=== PATIENT | female | born 1960 | race Caucasian/White ===

== ENCOUNTER → 2017-06-15 | Outpatient (CLI) | payer BC, OTHER | LOC: M LAB 08:00 | PROVIDERS: ATTEND Family Medicine | DX: D64.9 Anemia, unspecified (principal); R53.83 Other fatigue; E03.9 Hypothyroidism, unspecified ==

== ENCOUNTER → 2017-06-15 | Outpatient (CLI) | payer BC, OTHER ==
--- NOTE | 2017-06-15 08:38 | REPMRS ---
Patient History The patient states she has not had a clinical breast exam in over a year. Patient is postmenopausal. Family history of breast cancer in mother at age 65. Digital Mammo Screening Bilat: June 15, 2017 - Exam #: [id number] Bilateral CC and MLO view(s) were taken. Technologist: Belkis Dey, Technologist Prior study comparison: March 26, 2011, bilateral digital mammo screening bilat performed at [facility]. FINDINGS: There are scattered fibroglandular densities. The patient states that there are no palpable abnormalities or other breast complaints. There has been no change in the appearance of the mammogram from the prior studies. There is a mild amount of residual fibroglandular tissue which is fairly symmetric. There is no interval development of dominant mass, architectural distortion, or clustered microcalcification suggestive of malignancy. ASSESSMENT: BI-RADS/ACR category 1 mammogram. Negative. Recommendation Routine screening mammogram in 1 year (for women over age 40). This mammogram was interpreted with the aid of an FDA-approved computer-aided dectection system. A. Negative x-ray reports should not delay biopsy if a dominant or clinically suspicious mass is present. B. Not all cancers are identified by mammography. C. Adenosis and dense breast may obscure an underlying neoplasm. Electronically Signed By: Kwesi Robison M.D. 06/15/17 0837
[2017-06-15 09:50] LABS: MEAN CORPUSCULAR HEMOGLOBIN 28.7 pg (27.0-33.0); MEAN CORPUSCULAR HGB CONC 32.8 g/dl (32.0-36.5); MEAN CORPUSCULAR VOLUME 87.6 fl (80.0-96.0); RED CELL DISTRIBUTION WIDTH 12.9 % (11.5-14.5); WHITE BLOOD COUNT 4.8 K/mm3 (4.0-10.0)
[2017-06-15 10:26] LABS: ALBUMIN 3.7 GM/DL (3.2-5.2); ALBUMIN/GLOBULIN RATIO 1.12 (1.00-1.93); ALKALINE PHOSPHATASE 89 U/L (45-117); ALT/SGPT 34 U/L (12-78); ANION GAP 8 MEQ/L (8-16); AST/SGOT 18 U/L (15-37); BILIRUBIN,TOTAL 0.4 MG/DL (0.2-1.0); BLOOD UREA NITROGEN 13 MG/DL (7-18); CALCIUM LEVEL 8.6 MG/DL (8.5-10.1); CARBON DIOXIDE LEVEL 27 MEQ/L (21-32); CHLORIDE LEVEL 102 MEQ/L (98-107); CHOLESTEROL LEVEL 243 MG/DL (<200); GLOMERULAR FILTRATION RATE > 60.0 (>51); GLUCOSE, FASTING 86 MG/DL (70-105); POTASSIUM SERUM 3.9 MEQ/L (3.5-5.1); SODIUM LEVEL 137 MEQ/L (136-145); TRIGLYCERIDES LEVEL 113 MG/DL (<150)
== END ==
LOC: M RAD 07:39
PROVIDERS: ATTEND Family Medicine
DX: Z12.31 Encounter for screening mammogram for malignant neoplasm of breast (principal); Z78.0 Asymptomatic menopausal state
CPT/HCPCS: 36415; 80053; 80061; 82306; 83036; 84443; 85027; G0202

== ENCOUNTER → 2017-07-01 | Outpatient (CLI) | payer BC, OTHER ==
[~2017-07-01] MED LIST: E-Z-GAS II EFFERVESCENT PACKET (SODIUM BICARB./CITRIC ACID/SIMETHICONE) As Ordered ONE; E-Z-HD 98% w/w 340GM SUSP BTL As Ordered ONE; E-Z-PAQUE 96% w/w SUSP 176GM BTL As Ordered ONE
--- NOTE | 2017-07-01 18:57 | REP ---
UPPER GI AIR CONTRAST: The procedure was performed under the direct supervision of Dr. Rodríguez. The images were reviewed with Dr. Guo. The market president film shows no organomegaly or pathological masses. The intestinal gas pattern is nonspecific. There are surgical clips noted in the right upper quadrant. Liquid barium and gas producing granules were given in the erect position as well as liquid barium in the prone oblique position in order to perform a double contrast upper GI examination. The oral and pharyngeal stages of deglutition are unremarkable. Esophageal transport demonstrates tertiary waves. There is no esophagitis, stricture, or mucosal ring. There is a sliding type hiatal hernia present. Gastroesophageal reflux is not demonstrated on this examination. The stomach mercado are normally outlined. The rugal folds are smooth and regular. There is no gastritis, neoplasm or ulcer disease. The duodenal mercado are normally outlined. The mucosal folds are smooth and regular. There is no duodenitis, pancreatitis, peptic ulcer disease, or neoplasm. The visualized portion of the proximal small bowel appears normal in course and caliber. IMPRESSION: 1. Esophageal dysmotility. 2. There is a sliding type hiatal hernia present. 2 minutes and 16 seconds of fluoroscopy time was utilized for this procedure. Reviewed by JAMAL Faulkner 07/02/2017 05:08 PEdited and Signed by Kwesi Rodríguez MD 07/02/2017 05:21 P
== END ==
LOC: M RAD 08:42
PROVIDERS: ATTEND Family Medicine
DX: K22.8 Other specified diseases of esophagus (principal); K44.9 Diaphragmatic hernia without obstruction or gangrene; K27.9 Peptic ulcer, site unspecified, unspecified as acute or chronic, without hemorrhage or perforation; R13.10 Dysphagia, unspecified

== ENCOUNTER 2017-10-20 07:40 | Day surgery (SDC) | payer BC, OTHER ==
[~2017-10-20] VITALS: Ht 165.1 cm; Wt 85.2 kg
[~2017-10-20 07:40] MED LIST changes: -E-Z-GAS II EFFERVESCENT PACKET (SODIUM BICARB./CITRIC ACID/SIMETHICONE) As Ordered ONE; -E-Z-HD 98% w/w 340GM SUSP BTL As Ordered ONE; -E-Z-PAQUE 96% w/w SUSP 176GM BTL As Ordered ONE; +ESTR1TAB PO; +LEVO125T4 PO; +MELA1TAB15 PO; +PRIL20CA9 PO; +SERT-138 PO; +SERT-155 PO; +URO-1CAP PO; +VITA400T2 PO
[2017-10-20] MEDS ORDERED: NS 1,000 ML IV ONE (08:15)
--- NOTE | 2017-10-20 09:23 | ROOR ---
Patient Name: Shalini Becerril Procedure Date: 10/20/2017 8:58 AM Date of : 1960 Age: 57 Room: [facility] Gender: Female Note Status: Finalized Procedure: Total Colonoscopy to Cecum Indications: Screening for colorectal malignant neoplasm Providers: Rodrick Chanel MD Referring MD: NIVIA MAX MD Requesting Provider: Medicines: Monitored Anesthesia Care Complications: No immediate complications. Procedure: Pre-Anesthesia Assessment: - The heart rate, respiratory rate, oxygen saturations, blood pressure, adequacy of pulmonary ventilation, and response to care were monitored throughout the procedure. The Colonoscope was introduced through the anus and advanced to the cecum, identified by appendiceal orifice and ileocecal valve. The colonoscopy was performed without difficulty. The patient tolerated the procedure well. The quality of the bowel preparation was good. Findings: The perianal and digital rectal examinations were normal. Non-bleeding internal hemorrhoids were found during retroflexion. The hemorrhoids were small and Grade I (internal hemorrhoids that do not prolapse). A diffuse area of mild melanosis was found in the entire colon. Scattered small-mouthed diverticula were found in the recto-sigmoid colon, sigmoid colon and descending colon. The exam was otherwise without abnormality on direct and retroflexion views. The exam was otherwise without abnormality. Impression: - Non-bleeding internal hemorrhoids. - Melanosis in the colon. - Diverticulosis in the recto-sigmoid colon, in the sigmoid colon and in the descending colon. - The examination was otherwise normal on direct and retroflexion views. - The examination was otherwise normal. - No specimens collected. - The exam was otherwise normal to the cecum. Recommendation: - Patient has a contact number available for emergencies. The signs and symptoms of potential delayed complications were discussed with the patient. Return to normal activities tomorrow. Written discharge instructions were provided to the patient. - High fiber diet. - Discharge patient to home. - Continue present medications. - Repeat colonoscopy in 10 years for screening purposes. - Return to referring physician. - The findings and recommendations were discussed with the patient's family. Rodrick Chanel MD Rodrick Chanel MD 10/20/2017 9:23:49 AM This report has been signed electronically. Number of Addenda: 0 Note Initiated On: 10/20/2017 8:58 AM Estimated Blood Loss: Estimated blood loss: none.
[2017-10-20] MEDS ORDERED: LIDOCAINE 2% INJ 100 MG/5 ML SDV (FOR ANES.) As Ordered ONE (09:24)
[2017-10-20] MEDS ORDERED: PROPOFOL 200 MG/20 ML VIAL As Ordered ONE (09:25)
[2017-10-20 09:50] VITALS: BP 141/71
== END 2017-10-20 10:10 | disposition home or self-care (01) ==
LOC: M OPP 07:40
PROVIDERS: ATTEND Internal Medicine Gastroenterology
DX: Z12.11 Encounter for screening for malignant neoplasm of colon (principal); K57.30 Diverticulosis of large intestine without perforation or abscess without bleeding; K64.0 First degree hemorrhoids; L81.4 Other melanin hyperpigmentation; E03.9 Hypothyroidism, unspecified; K44.9 Diaphragmatic hernia without obstruction or gangrene; R12 Heartburn; K21.9 Gastro-esophageal reflux disease without esophagitis; M19.90 Unspecified osteoarthritis, unspecified site; F41.9 Anxiety disorder, unspecified; F32.9 Major depressive disorder, single episode, unspecified; R39.89 Other symptoms and signs involving the genitourinary system; Z88.1 Allergy status to other antibiotic agents; Z88.2 Allergy status to sulfonamides; Z79.899 Other long term (current) drug therapy; Z80.3 Family history of malignant neoplasm of breast

== ENCOUNTER → 2018-06-16 | Outpatient (CLI) | payer BC, OTHER | LOC: M RAD 07:00 | DX: Z12.31 Encounter for screening mammogram for malignant neoplasm of breast (principal) | CPT/HCPCS: 77067 ==

== ENCOUNTER → 2019-06-20 | Outpatient (CLI) | payer BC, OTHER ==
--- NOTE | 2019-06-20 08:31 | REP ---
BILATERAL SCREENING DIGITAL MAMMOGRAM WITH 3D TOMOSYNTHESIS: There are no palpable abnormalities or other breast complaints. The the patient states she is not had a clinical breast examination in over a year. The Tyrer-Cuzick Score is: 15.3% . Comparison is 05/07/2014. There are scattered areas of fibroglandular density. There is no dominant mass, micro calcific cluster or architectural distortion that would indicate malignancy. There are no additional findings on 3D tomosynthesiss. There is no change from the prior study. Impression: BIRADS/ACR category 1 mammogram. Negative. Recommendation: Routine annual screening mammography. This mammogram was interpreted with the aid of a FDA approved computer-aided detection system. A. Negative mammogram reports should not delay biopsy if a dominant or clinically suspicious mass is present. B. Not all breast cancers are identified by mammography or tomosynthesis. C. Adenosis and dense breasts may obscure an underlying neoplasm. Patient letter M1. Electronically Signed by Kwesi Robison MD 06/20/2019 08:22 A
== END ==
LOC: M RAD 07:03
PROVIDERS: ATTEND Family Medicine
DX: Z12.31 Encounter for screening mammogram for malignant neoplasm of breast (principal)

== ENCOUNTER → 2019-08-29 | Outpatient (CLI) | payer BC, OTHER ==
--- NOTE | 2019-08-29 15:22 | REP ---
THYROID ULTRASOUND: Real-time sonographic evaluation of the thyroid performed. COMPARISON: 05/22/2016. Right lobe is larger than the left. Right lobe measures 4.6 x 1.3 x 0.9 cm and left lobe 3.7 x 1.2 x 1.0 cm. Echotexture is diffusely heterogeneous. In the mid right lobe is a solid appearing hypoechoic nodule 9 x 5 x 4 mm. Just superior to that another hypoechoic nodule measures 6 x 5 x 3 mm. In the left lobe mid aspect a complex septated cyst measures 5 x 3 x 3 mm. IMPRESSION: Two solid appearing nodules in the right lobe of the thyroid. Recommend followup ultrasound in 6 months. Electronically Signed by Kwesi Rodríguez MD 08/30/2019 04:16 P
== END ==
LOC: M RAD 13:45
PROVIDERS: ATTEND Family Medicine
DX: E04.2 Nontoxic multinodular goiter (principal)

== ENCOUNTER → 2019-09-13 | Outpatient (REF) | payer OTHER ==
[~2019-09-13] MED LIST changes: -SERT-155 PO; +SERT50TA29 PO
[2019-09-13 16:12] LABS: FREE T4 1.27 NG/DL (0.76-1.46); THYROID STIMULATING HORMONE 0.324 uIU/ML (0.358-3.740)
== END ==
LOC: M LABDRAW1 13:25
PROVIDERS: ATTEND Nurse Practitioner Family
DX: E03.9 Hypothyroidism, unspecified (principal)

== ENCOUNTER → 2020-03-18 | Outpatient (REF) | payer OTHER ==
[2020-03-18 18:10] LABS: FREE T4 1.28 NG/DL (0.76-1.46); THYROID STIMULATING HORMONE 0.574 uIU/ML (0.358-3.740)
== END ==
LOC: M LABDRWAD 16:31
PROVIDERS: ATTEND Nurse Practitioner Family
DX: E03.9 Hypothyroidism, unspecified (principal)

== ENCOUNTER 2020-06-30 13:04 | Emergency (ER) | payer BC, OTHER ==
[2020-06-30] MEDS ORDERED: MORPHINE 4 MG/ML 1ML VIAL/SYRINGE (J2270) ONE (13:34)
== END 2020-06-30 15:23 | disposition home or self-care (01) ==
LOC: M ED 13:04
DX: M51.37 Other intervertebral disc degeneration, lumbosacral region (principal); G89.29 Other chronic pain; M54.5 Low back pain; F33.9 Major depressive disorder, recurrent, unspecified; F41.9 Anxiety disorder, unspecified; Z88.2 Allergy status to sulfonamides; Z88.1 Allergy status to other antibiotic agents; Z79.899 Other long term (current) drug therapy
CPT/HCPCS: 72110; 96372; 99283; J2270

== ENCOUNTER → 2020-07-30 | Outpatient (CLI) | payer BC, OTHER ==
[2020-07-30 10:43] LABS: HEMATOCRIT 38.6 % (36.0-47.0); HEMOGLOBIN 12.1 g/dl (12.0-15.5); MEAN CORPUSCULAR HEMOGLOBIN 27.9 pg (27.0-33.0); MEAN CORPUSCULAR HGB CONC 31.3 g/dl (32.0-36.5); MEAN CORPUSCULAR VOLUME 88.9 fl (80.0-96.0); PLATELET COUNT, AUTOMATED 285 10^3/uL (150-450); RED BLOOD COUNT 4.34 10^6/uL (4.00-5.40)
[2020-07-30 11:08] LABS: HEMOGLOBIN A1c 5.9 %
[2020-07-30 11:12] LABS: ALBUMIN 3.5 GM/DL (3.2-5.2); ALT/SGPT 27 U/L (12-78); BILIRUBIN,TOTAL 0.3 MG/DL (0.2-1.0); BLOOD UREA NITROGEN 12 MG/DL (7-18); CALCIUM LEVEL 9.2 MG/DL (8.5-10.1); CARBON DIOXIDE LEVEL 28 MEQ/L (21-32); CHLORIDE LEVEL 107 MEQ/L (98-107); CHOLESTEROL LEVEL 275 MG/DL (<200); CHOLESTEROL RISK RATIO 4.104 (<5); CREATININE FOR GFR 0.81 MG/DL (0.55-1.30); GLOMERULAR FILTRATION RATE > 60.0 (>51); GLUCOSE, FASTING 86 MG/DL (70-100); HDL CHOLESTEROL 67 MG/DL (>40); IRON (FE) 58 UG/DL (50-170); LDL CHOLESTEROL 187 MG/DL (<100); NON-HDL-C 208 MG/DL; PERCENT SATURATION 14.7 % (13.2-45.0); POTASSIUM SERUM 4.3 MEQ/L (3.5-5.1); SODIUM LEVEL 140 MEQ/L (136-145); THYROID STIMULATING HORMONE 0.158 uIU/ML (0.358-3.740); TOTAL 25(OH) VITAMIN D 79.7 NG/ML (30.0-100.0); TOTAL IRON BINDING CAPACITY 395 UG/DL (250-450); TRIGLYCERIDES LEVEL 103 MG/DL (<150)
[2020-07-30 11:58] LABS: VITAMIN B12 LEVEL 440 PG/ML (247-911)
== END ==
LOC: M LAB 09:37
PROVIDERS: ATTEND Family Medicine
DX: R53.83 Other fatigue (principal); I10 Essential (primary) hypertension; E03.9 Hypothyroidism, unspecified

== ENCOUNTER → 2020-08-02 | Outpatient (CLI) | payer BC, OTHER ==
--- NOTE | 2020-08-02 11:42 | REPVR ---
PROCEDURE INFORMATION: Exam: MR Lumbar Spine Without Contrast. Exam date and time: 08/02/2020 11:14 AM Age: 60 years old Clinical indication: Low back pain; Additional info: Other intervertebral disc degeneration TECHNIQUE: Imaging protocol: Multiplanar magnetic resonance images of the lumbar spine without intravenous contrast. COMPARISON: No relevant prior studies available. FINDINGS: Vertebrae: There is no fracture or listhesis. Normal vertebral body alignment and heights are preserved. There is severe intervertebral disc space loss at L5/S1, with endplate changes. Spinal cord: The conus medullaris terminates at L1. L1-L2: There is shallow disc bulging. There is mild facet hypertrophy. The spinal canal and neural foramina are patent. L2-L3: There is shallow disc bulging. There is moderate facet and ligamentous hypertrophy. The spinal canal and neural foramina are patent. L3-L4: There is shallow disc bulging. There is moderate facet hypertrophy. There is mild bilateral neural foraminal narrowing. L4-L5: There is diffuse disc bulging with a right paracentral component. This indents the thecal sac and narrows the right lateral recess. There is mild canal stenosis, with a residual canal diameter of 10mm. There is moderate facet hypertrophy. There is mild bilateral neural foraminal narrowing. L5-S1: There is a shallow disc osteophyte complex. There is mild facet hypertrophy. There is mild to moderate right neural foraminal narrowing. Soft tissues: Unremarkable. IMPRESSION: Degenerative disc disease and spondylosis as described. Electronically signed by: Noreen Gillette On 08/02/2020 11:41:33 AM
== END ==
LOC: M RAD 10:29
PROVIDERS: ATTEND Physician Assistant
DX: M47.816 Spondylosis without myelopathy or radiculopathy, lumbar region (principal); M25.78 Osteophyte, vertebrae; M51.36 Other intervertebral disc degeneration, lumbar region

== ENCOUNTER → 2020-08-06 | Outpatient (CLI) | payer BC ==
--- NOTE | 2020-08-06 12:31 | REPMRS ---
Patient History The patient states she has not had a clinical breast exam in over a year. Patient is postmenopausal. Family history of breast cancer at age 65 in mother. Digital Woman Screen Mammo: August 06, 2020 - Exam #: [id number] Bilateral CC and MLO view(s) were taken. Technologist: RT Angelia Prior study comparison: June 20, 2019, bilateral digital mammo screening bilat, performed at [facility]. June 16, 2018, bilateral digital mammo screening bilat, performed at [facility]. June 15, 2017, bilateral digital mammo screening bilat, performed at [facility]. FINDINGS: The breast tissue is almost entirely fat. The Volpara volumetric breast density category is: A. There has been no change in the appearance of the mammogram from the prior studies. There is no interval development of dominant mass, architectural distortion, or grouped microcalcification typical of malignancy. 3-D tomosynthesis shows no additional findings. Assessment: BI-RADS/ACR category 1 mammogram. Negative Mammogram. Recommendation Routine screening mammogram of both breasts in 1 year (for women over age 40). This patient's Lifetime Breast Cancer RIsk is estimated at 18.4 %. This mammogram was interpreted with the aid of an FDA-approved computer-aided dectection system. Electronically Signed By: Ryan Guo MD 08/06/20 [id number]
== END ==
LOC: M WHC 08:17
PROVIDERS: ATTEND Family Medicine
DX: Z12.31 Encounter for screening mammogram for malignant neoplasm of breast (principal); Z78.0 Asymptomatic menopausal state; Z80.3 Family history of malignant neoplasm of breast

== ENCOUNTER → 2020-09-16 | Outpatient (REF) | payer OTHER ==
[2020-09-16 19:11] LABS: FREE T4 1.43 NG/DL (0.76-1.46); THYROID STIMULATING HORMONE 0.11 uIU/ML (0.358-3.740)
== END ==
LOC: M LABDRWAD 17:51 → M LAB REF 17:51
PROVIDERS: ATTEND Nurse Practitioner Family
DX: E03.9 Hypothyroidism, unspecified (principal)

== ENCOUNTER → 2020-11-18 | Outpatient (REF) | payer OTHER | LOC: M LABDRWAD 12:26 | PROVIDERS: ATTEND Internal Medicine Endocrinology, Diabetes & Metabolism | DX: E03.9 Hypothyroidism, unspecified (principal) ==

== ENCOUNTER → 2020-12-26 | Outpatient (REF) | payer OTHER | LOC: M LABDRWAD 16:05 | PROVIDERS: ATTEND Family Medicine | DX: Z79.899 Other long term (current) drug therapy (principal) ==

== ENCOUNTER → 2021-03-19 | Outpatient (REF) | payer OTHER ==
[2021-03-19 17:33] LABS: FREE T4 1.1 NG/DL (0.76-1.46); THYROID STIMULATING HORMONE 0.809 uIU/ML (0.358-3.740)
== END ==
LOC: M LABDRWAD 16:15
PROVIDERS: ATTEND Nurse Practitioner Family
DX: E03.9 Hypothyroidism, unspecified (principal)

== ENCOUNTER 2021-05-24 12:56 | Emergency (ER) | payer BC, OTHER ==
[~2021-05-24] VITALS: Ht 165.1 cm; Wt 73.7 kg
[2021-05-24] MEDS ORDERED: ESTR625TA (13:15)
[2021-05-24] MEDS ORDERED: ALPR0.5T3 (13:15)
[2021-05-24] MEDS ORDERED: AMIT25TA17 (13:15)
[2021-05-24] MEDS ORDERED: SIMV20TA22 PO (13:15)
[2021-05-24] MEDS ORDERED: BOOSTRIX/ADACEL VACCINE (DIPHTH/PERTUSS/ACELL/TETANUS) 0.5ML SYR IM ONE (14:35)
[2021-05-24] MEDS ORDERED: predniSONE 20 MG TAB PO ONE (14:35)
[2021-05-24] MEDS ORDERED: CEPH500T PO (14:35)
[2021-05-24 14:44] VITALS: BP 149/84
== END 2021-05-24 14:51 | disposition home or self-care (01) ==
LOC: M ED 12:56
DX: T63.441A Toxic effect of venom of bees, accidental (unintentional), initial encounter (principal); S60.445A External constriction of left ring finger, initial encounter; R22.32 Localized swelling, mass and lump, left upper limb; L03.012 Cellulitis of left finger; Z91.030 Bee allergy status; Y92.009 Unspecified place in unspecified non-institutional (private) residence as the place of occurrence of the external cause; Y93.9 Activity, unspecified; Y99.9 Unspecified external cause status; E03.9 Hypothyroidism, unspecified; F41.9 Anxiety disorder, unspecified; F32.9 Major depressive disorder, single episode, unspecified; E78.5 Hyperlipidemia, unspecified; Z79.899 Other long term (current) drug therapy; Z88.2 Allergy status to sulfonamides; Z88.8 Allergy status to other drugs, medicaments and biological substances
CPT/HCPCS: 90715; 96372; 99283; J7512

== ENCOUNTER → 2021-09-15 | Outpatient (REF) | payer BC, OTHER ==
[~2021-09-15] MED LIST changes: +ALPR0.5T3; +AMIT25TA17; +CEPH500T PO; +ESTR625TA; +SIMV20TA22 PO
[2021-09-16 15:12] LABS: FREE T4 1.29 NG/DL (0.76-1.46); THYROID STIMULATING HORMONE 0.49 uIU/ML (0.358-3.740)
== END ==
LOC: M LABDRWAD 12:39
PROVIDERS: ATTEND Nurse Practitioner Family
DX: E03.9 Hypothyroidism, unspecified (principal)

== ENCOUNTER → 2022-02-23 | Outpatient (CLI) | payer BC, OTHER | LOC: M PLAIMG 09:25 | PROVIDERS: ATTEND Internal Medicine | DX: G57.81 Other specified mononeuropathies of right lower limb (principal); M22.41 Chondromalacia patellae, right knee; M25.461 Effusion, right knee ==

== ENCOUNTER → 2023-03-17 | Outpatient (REF) | payer OTHER, BC ==
[2023-03-17 15:34] LABS: RHEUMATOID FACTOR QUANT < 3.5 IU/ML (<14)
[2023-03-18 23:07] LABS: CYCLIC CITRULLINATED PEPTIDE 4 units (0-19)
== END ==
LOC: M LAB REF 12:14
PROVIDERS: ATTEND Internal Medicine
DX: M35.00 Sjogren syndrome, unspecified (principal); M13.80 Other specified arthritis, unspecified site

== ENCOUNTER → 2024-09-06 | Outpatient (REF) | payer OTHER, BC ==
[~2024-09-06] MED LIST changes: -AMIT25TA17; +AMIT25TA19
[2024-09-06 14:27] LABS: PERCENT SATURATION 23.8 % (13.2-45.0)
[2024-09-06 14:30] LABS: FERRITIN 12.8 NG/ML (7.3-270.7)
== END ==
LOC: M LAB REF 11:56
PROVIDERS: ATTEND Internal Medicine
DX: R53.83 Other fatigue (principal); Z11.59 Encounter for screening for other viral diseases

== ENCOUNTER 2025-01-15 05:57 | Day surgery (SDC) | payer BC ==
[~2025-01-15] VITALS: Ht 165.1 cm; Wt 82.4 kg
[~2025-01-15 05:57] MED LIST changes: -ALPR0.5T3; +ALPR0.5T3 PO; -AMIT25TA19; +AMIT25TA19 PO; +BUPR150T12 PO; -ESTR625TA; +ESTR625TA PO; +LEVO100T5 PO; +OMEP-173 PO; +VITA100093 PO; +ZOLO100T PO; +[UNRECOGNIZED DRUG - OTHER]; +[UNRECOGNIZED DRUG - OTHER]
[2025-01-15] MEDS ORDERED: LR 1,000 ML IV SCH (06:25)
[2025-01-15] MEDS ORDERED: LIDOCAINE 2% 100MG/5ML SDV (FOR ANES.) As Ordered ONE (06:40)
[2025-01-15] MEDS ORDERED: propofoL 200 MG/20 ML VIAL As Ordered ONE (06:40)
[2025-01-15] MEDS ORDERED: ACETAMINOPHEN 1000MG/100ML IV BAG As Ordered ONE (06:40)
[2025-01-15] MEDS ORDERED: fentaNYL 100 MCG/2 ML INJECTION As Ordered ONE (06:40)
[2025-01-15] MEDS ORDERED: MIDAZOLAM INJ 2MG/2ML VIAL As Ordered ONE (06:41)
[2025-01-15] MEDS: ceFAZolin 2 GM/D5W 50 ML IV BAG As Ordered ONE (07:50)
[2025-01-15] MEDS ORDERED: ONDANSETRON 4MG 2ML VIAL As Ordered ONE (07:56)
[2025-01-15] MEDS ORDERED: KETOROLAC 60MG 2ML VIAL As Ordered ONE (07:56)
[2025-01-15] MEDS: BACITRACIN OINTMENT 30GM TUBE As Ordered ONE (08:35)
[2025-01-15] MEDS ORDERED: ONDANSETRON 4MG 2ML VIAL IV PRN (08:50)
[2025-01-15] MEDS ORDERED: fentaNYL 100 MCG/2 ML INJECTION IV PRN (08:50)
[2025-01-15] MEDS: oxyCODONE 5MG TAB PO PRN (09:17)
[2025-01-15 09:55] VITALS: BP 148/74; TEMP 97.3; O2SAT 98
== END 2025-01-15 10:54 | disposition home or self-care (01) ==
LOC: M SDC 05:57
PROVIDERS: ATTEND Orthopaedic Surgery Hand Surgery
DX: M72.0 Palmar fascial fibromatosis [Dupuytren] (principal); E78.5 Hyperlipidemia, unspecified; E03.9 Hypothyroidism, unspecified; K21.9 Gastro-esophageal reflux disease without esophagitis; F41.9 Anxiety disorder, unspecified; F32.A Depression, unspecified; Z88.2 Allergy status to sulfonamides; Z88.8 Allergy status to other drugs, medicaments and biological substances
CPT/HCPCS: 26045; 88304; J0131; J0665; J0690; J1100; J1885; J2250; J2405; J3010

== ENCOUNTER → 2025-04-04 | Outpatient (REF) | payer BC, OTHER ==
[2025-04-04 14:42] LABS: PERCENT SATURATION 24.1 % (13.2-45.0)
[2025-04-04 14:45] LABS: FERRITIN 6.7 NG/ML (7.3-270.7)
== END ==
LOC: M LAB REF 12:32
PROVIDERS: ATTEND Internal Medicine
DX: D50.9 Iron deficiency anemia, unspecified (principal)

== ENCOUNTER → 2025-09-18 | Outpatient (REF) | payer BC ==
[2025-09-18 13:22] LABS: IRON (FE) 104.0 UG/DL (50-170); PERCENT SATURATION 39.4 % (13.2-45.0)
== END ==
LOC: M LAB REF 11:50
PROVIDERS: ATTEND Internal Medicine
DX: D50.9 Iron deficiency anemia, unspecified (principal)